=== PATIENT | female | born 1985 ===

== ENCOUNTER 2016-06-18 07:59 | Emergency (ER) | payer OTHER ==
[~2016-06-18] VITALS: Ht 160 cm; Wt 54.0 kg
[2016-06-18 08:02] VITALS: Ht 160 cm; Wt 54.0 kg
[2016-06-18] MEDS ORDERED: LEVALBUTEROL (NEB) 1.25 MG/0.5 ML AMP INH STA (08:14)
[2016-06-18] MEDS ORDERED: DEXAMETHASONE 10 MG/ML 1 ML INJ IM STA (08:14)
[2016-06-18] MEDS ORDERED: LORAZEPAM 2 MG INJ IM ONE ×2 (09:00)
--- NOTE | 2016-06-18 09:05 | RADRPT ---
PROCEDURE: XR Chest. CLINICAL INDICATION: chest pain, asthma TECHNIQUE: Single frontal view of the chest was obtained COMPARISON: None FINDINGS: The heart and mediastinum are within normal limits. The lungs are clear. There is no pleural effusion or pneumothorax. RPTAT: AA IMPRESSION: No acute disease. .Corby Dixon MD, MD Date Time Electronically viewed and signed by .Corby Dixon MD, on 06/18/2016 09:05 .S/
--- NOTE | 2016-06-18 09:39 | ERD ---
ER Documentation Chief Complaint Date/Time DATE: 06/18/16 TIME: 09:31 Chief Complaint SOB,ASTHMA ATTACK HPI This is a 31-year-old female presenting to the emergency department for shortness of breath and difficulty breathing for the past 40min. Patient states she has a history of asthma and used her albuterol inhaler 8 times before presenting to the ER. No cough or wheezing. Denies fevers. Patient states she has a history of anxiety and is currently not on medications for this. States she smoked cigarettes and drank tequila before the shortness of breath and difficulty breathing started. No difficulty swallowing or sore throat. No drooling. ROS All systems reviewed and are negative except as per history of present illness. Medications Home Meds Active Scripts Prednisone* (Prednisone*) 20 Mg Tab, 40 MG PO DAILY for 4 Days, TAB Prov:RODRIGUEZ SOUSA NP 06/18/16 Allergies Allergies: Coded Allergies: No Known Allergy (Unverified , 06/18/16) PMhx/Soc Medical and Surgical Hx: pt denies Surgical Hx History of Surgery: No Anesthesia Reaction: No Hx Neurological Disorder: No Hx Respiratory Disorders: Yes (Asthma) Hx Cardiac Disorders: No Hx Psychiatric Problems: No Hx Miscellaneous Medical Probl: No Hx Alcohol Use: Yes Hx Substance Use: No Hx Tobacco Use: Yes Smoking Status: Never smoker Physical Exam Vitals Vital Signs Date Time Temp Pulse Resp B/P Pulse Ox O2 Delivery O2 Flow Rate FiO2 06/18/16 10:43 98.3 99 18 128/88 100 Room Air 06/18/16 08:21 135 20 100 Nasal Cannula 2.0 06/18/16 08:02 98.3 118 18 137/95 100 Physical Exam Const: Sitting up in bed, gasping Head: Atraumatic Eyes: Normal Conjunctiva ENT: Normal External Ears, Nose and Mouth. Neck: Full range of motion..~ No meningismus. Resp: Clear to auscultation bilaterally. Tripod position for breathing. No wheezing, rhonchi or crackles. Cardio: Regular rate and rhythm, no murmurs Abd: Soft, non tender, non distended. Normal bowel sounds Skin: No petechiae or rashes Back: No midline or flank tenderness Ext: No cyanosis, or edema Neur: Awake and alert Psych: Normal Mood and Affect Results 24 hrs Laboratory Tests Test 06/18/16 09:58 Bedside Urine Blood Negative Bedside Urine Glucose (UA) Negative Bedside Urine Ketones (LAB) Negative Bedside Urine Leukocyte Esterase (L Negative Bedside Urine Nitrite (LAB) Negative Bedside Urine Protein (LAB) Negative Bedside Urine pH (LAB) 6.5 Current Medications Medications (Trade) Dose Ordered Sig/Alex Route PRN Reason Start Time Stop Time Status Last Admin Dose Admin Dexamethasone (Decadron) 10 mg ONCE STAT IM 06/18/16 08:14 06/18/16 08:16 DC 06/18/16 08:20 Levalbuterol (Xopenex Neb) 1.25 mg ONCE STAT INH 06/18/16 08:14 06/18/16 08:16 DC 06/18/16 08:20 Lorazepam (Ativan) 0.5 mg ONCE ONCE IM 06/18/16 09:00 06/18/16 09:00 DC Lorazepam (Ativan) 1 mg ONCE ONCE IM 06/18/16 09:00 06/18/16 09:01 DC 06/18/16 08:56 Procedures/MDM ED COURSE: The patient was stable throughout ED course. I kept the patient and/or family informed of laboratory and diagnostic imaging results throughout the ED course. Patient given Xopenex breathing treatment with Decadron. Patient also given 1 mg Ativan. Imaging Chest x-ray Patient: PATRICIO RAHMAN : 1985 Age: 31 Sex: F MR #: [id number] DOS: 06/18/1614 Ordering MD: RODRIGUEZ SOUSA NP Location: [facility] Room/Bed: PROCEDURE: XR Chest. CLINICAL INDICATION: chest pain, asthma TECHNIQUE: Single frontal view of the chest was obtained COMPARISON: None FINDINGS: The heart and mediastinum are within normal limits. The lungs are clear. There is no pleural effusion or pneumothorax. RPTAT: AA IMPRESSION: No acute disease. MDM: This is a 31-year-old female presents emergency department for shortness of breath for the past 40 minutes. Patient states she has history of asthma and used her albuterol inhaler 8 times when she started developing shortness of breath and difficulty breathing. Patient states she then started feeling worse and came to the ER for evaluation. Patient was started on oxygen via nasal cannula. Dr. Jain notified of patient and patient's condition as patient is sitting gasping for air in tripod position on the gurney. Xopenex breathing treatment and Decadron improved patient's breathing. Dr. Jain at bedside and we agree that patient would benefit from Ativan. Patient given 1 mg Ativan which improved her symptoms dramatically. Patient now breathing without difficulty and laying down in bed. Vital signs remained stable. Oxygen removed and oxygen saturation remains 100% on room air. Patient states she is feeling much better. Low suspicion for pneumonia, pneumothorax, pulmonary embolism or epiglottitis. Patient likely has shortness of breath secondary to asthma exacerbation. Patient is appropriate for outpatient management will be discharged with prescription for prednisone. Instructed patient to follow-up with primary care provider in the next 2-3 days for reassessment. Return to ED for any high fever , chest pain, difficulty breathing, shortness breath, wheezing, vomiting, diarrhea, abdominal pain or any new or worsening symptoms. Patient verbalizes understanding. All questions answered at discharge. Departure Diagnosis: Primary Impression: Asthma exacerbation Condition: Stable RODRIGUEZ SOUSA NP Jun 18, 2016 09:39
[2016-06-18 09:58] LABS: URINE BLOOD (Dip) POC Negative (NEGATIVE)
[2016-06-18] MEDS ORDERED: PRED20TA PO (10:30)
[2016-06-18 10:43] VITALS: BP 128/88; PULSE 99; RESP 18; TEMP 98.3
[2016-06-19] MEDS ORDERED: CETI-240 PO (16:34)
[2016-06-19] MEDS ORDERED: BEN25 PO (16:35)
[2016-06-19] MEDS ORDERED: CLOT30CR24 TOP (17:28)
== END 2016-06-18 10:44 | disposition home or self-care (01) ==
LOC: FTE 07:59
DX: J45.901 Unspecified asthma with (acute) exacerbation (principal)
CPT/HCPCS: 71010; 81003; 94664; 96372; J1100; J2060; Z7502; Z7610

== ENCOUNTER 2016-06-19 14:32 | Emergency (ER) | payer OTHER ==
[~2016-06-19] VITALS: Wt 53.5 kg
[~2016-06-19 14:32] MED LIST: PRED20TA PO
[2016-06-19] MEDS ORDERED: LORAZEPAM 2 MG INJ IV STA (15:04)
[2016-06-19] MEDS ORDERED: SOD CHLORIDE 0.9% 1,000 ML IV STA (15:04)
[2016-06-19 15:28] LABS: BASOPHIL # 0.1 10^3/ul (0.0-0.1); BASOPHILS % 0.6 % (0.0-2.0); EOSINOPHILS % 0.2 % (0.0-7.0); HEMATOCRIT 45.2 % (37.0-47.0); HEMOGLOBIN 15.4 g/dl (12.0-16.0); LYMPHOCYTES # 3.8 10^3/ul (0.8-2.9); LYMPHOCYTES % 44.2 % (15.0-51.0); MEAN CORPUSCULAR HEMOGLOBIN 32.3 pg (29.0-33.0); MEAN CORPUSCULAR VOLUME 94.9 fl (82.0-101.0); MEAN PLATELET VOLUME 8.9 fl (7.4-10.4); MONOCYTE # 1.1 10^3/ul (0.3-0.9); MONOCYTES % 12.4 % (0.0-11.0); NEUTROPHIL # 3.7 10^3/ul (1.6-7.5); NEUTROPHILS % 42.6 % (39.0-77.0); PLATELET COUNT 258 10^3/UL (140-440); RED BLOOD COUNT 4.76 10^6/ul (4.20-5.40); RED CELL DISTRIBUTION WIDTH 13.6 % (11.5-14.5); UNCORRECTED WBC 8.6 10^3/ul (4.8-10.8); WHITE BLOOD COUNT 8.6 10^3/ul (4.8-10.8)
--- NOTE | 2016-06-19 15:28 | RADRPT ---
PROCEDURE: Chest x-ray CLINICAL INDICATION: Shortness of breath. TECHNIQUE: One-view frontal. COMPARISON: 06/18/2016 FINDINGS: The cardiac silhouette is normal. No infiltrates are noted. No hilar abnormalities are identified. No pneumothorax or pleural effusions are visualized. IMPRESSION: 1. No active cardiopulmonary changes. RPTAT: HH .Fransisco Garg MD, MD Date Time Electronically viewed and signed by .Fransisco Garg MD, on 06/19/2016 15:27 .G/
[2016-06-19 15:31] LABS: ADD UMIC YES; URINE BILIRUBIN (Dip) NEGATIVE (NEGATIVE); URINE BLOOD (Dip) TRACE (NEGATIVE); URINE COLOR LT. YELLOW (YELLOW); URINE GLUCOSE (Dip) NEGATIVE (NEGATIVE); URINE KETONES (Dip) NEGATIVE (NEGATIVE); URINE LEUKOCYTE ESTERASE (Dip) TRACE (NEGATIVE); URINE NITRITE (Dip) NEGATIVE (NEGATIVE); URINE TOTAL PROTEIN (Dip) NEGATIVE (NEGATIVE); URINE UROBILINOGEN (Dip) 0.2 E.U./dL (0.1-1.0)
[2016-06-19 15:36] LABS: CONDITION 1; LH ANALYZER COMMENTS 1; SUSPECT 1
[2016-06-19 15:44] LABS: SQUAMOUS EPITHELIAL CELL,UR FEW; URINE RBCS 0-2 /HPF (0)
[2016-06-19 15:53] LABS: CANNABINOIDS Negative (NEGATIVE)
[2016-06-19 15:59] LABS: BARBITURATES Negative (NEGATIVE); BENZODIAZEPINES Negative (NEGATIVE); COCAINE Negative (NEGATIVE); OPIATES Negative (NEGATIVE)
[2016-06-19 16:29] LABS: ALBUMIN 4.4 g/dl (3.3-4.9); CHLORIDE 104 mmol/L (97-110); SODIUM 143 mmol/L (135-144)
[2016-06-19 16:30] LABS: POTASSIUM 3.6 mmol/L (3.5-5.1)
[2016-06-19 16:32] LABS: ALANINE AMINOTRANSFERASE 17 IU/L (13-69); ALBUMIN/GLOBULIN RATIO 1.33; ALKALINE PHOSPHATASE 102 IU/L (42-121); ANION GAP 21 (8-16); ASPARTATE AMINO TRANSFERASE 26 IU/L (15-46); BILIRUBIN,INDIRECT 0.7 mg/dl (0-1.1); BILIRUBIN,TOTAL 0.7 mg/dl (0.2-1.3); BLOOD UREA NITROGEN 15 mg/dl (7-20); CALCIUM 9.6 mg/dl (8.4-10.2); CARBON DIOXIDE 22 mmol/L (21-31); GLUCOSE 81 mg/dl (70-220); TOTAL PROTEIN 7.7 g/dl (6.1-8.1)
[2016-06-19] MEDS ORDERED: CETI-240 PO (16:34)
[2016-06-19 16:35] LABS: ACETAMINOPHEN < 10.0 ug/ml (10.0-30.0); ETHANOL < 10.0 mg/dl; SALICYLATE < 1.0 mg/dl (5.0-30.0)
[2016-06-19] MEDS ORDERED: BEN25 PO (16:35)
[2016-06-19] MEDS ORDERED: CLOT30CR24 TOP (17:28)
[2016-06-19] MEDS ORDERED: BETAMETHASONE/CLOTRIMAZOLE 15 GM CR TOP ONE (17:30)
[2016-06-19 17:37] VITALS: BP 128/74; PULSE 95; RESP 19; TEMP 98.2
--- NOTE | 2016-06-19 18:01 | ERD ---
ER Documentation Chief Complaint Date/Time DATE: 06/19/16 TIME: 17:59 Chief Complaint SOB, TACHYCARDIC, STATES HAD GHB AND ETOH INTAKE HPI Patient is a 31-year-old female with no medical problems who presents "I feel like I will faint". She said that she had an asthma attack yesterday and she feels like her throat is closing. 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 She does not currently have a primary doctor. Upon review of old medical records she had one previous visit yesterday. ROS All systems reviewed and are negative except as per history of present illness. Medications Home Meds Active Scripts Clotrimazole* (Clotrimazole* AF) 1% - 30 Gm Cream.gm., 1 APPLIC TOP BID for 7 Days, TUB Prov:JOVITA HOWARD MD 06/19/16 Prednisone* (Prednisone*) 20 Mg Tab, 40 MG PO DAILY for 4 Days, TAB Prov:RODRIGUEZ SOUSA NP 06/18/16 Reported Medications Diphenhydramine Hcl* (Benadryl*) 25 Mg Cap, 25 MG PO Q6H Y for ITCHING, CAP 06/19/16 Cetirizine Hcl* (Cetirizine Hcl*) 10 Mg Tablet, 10 MG PO DAILY, #30 TAB 06/19/16 Allergies Allergies: Coded Allergies: No Known Allergy (Unverified , 06/19/16) PMhx/Soc Medical and Surgical Hx: pt denies Surgical Hx History of Surgery: No Anesthesia Reaction: No Hx Neurological Disorder: No Hx Respiratory Disorders: Yes (Asthma) Hx Cardiac Disorders: No Hx Psychiatric Problems: No Hx Miscellaneous Medical Probl: No Hx Alcohol Use: Yes (socially) Hx Substance Use: Yes Hx Tobacco Use: Yes Smoking Status: Current every day smoker FmHx Family History: No diabetes Physical Exam Vitals Vital Signs Date Time Temp Pulse Resp B/P Pulse Ox O2 Delivery O2 Flow Rate FiO2 06/19/16 17:37 98.2 95 19 128/74 100 Room Air 06/19/16 17:00 104 19 133/77 100 Room Air 06/19/16 14:40 99.1 139 24 162/90 99 Physical Exam Const: Anxious Head: Atraumatic Eyes: Normal Conjunctiva ENT: Normal External Ears, Nose and Mouth. No signs of oropharyngeal swelling or stridor over the Neck: Full range of motion..~ No meningismus. Resp: Clear to auscultation bilaterally Cardio: Tachycardic rate without murmur Abd: Soft, non tender, non distended. Normal bowel sounds Skin: No petechiae or rashes Back: No midline or flank tenderness Ext: No cyanosis, or edema Neur: Awake and alert Psych: Anxious and tearful Result Diagram: 06/19/16 1510 06/19/16 1559 Results 24 hrs Laboratory Tests Test 06/19/16 15:10 06/19/16 15:59 Basophils # 0.110^3/ul Basophils % 0.6% Eosinophils # 0.010^3/ul Eosinophils % 0.2% Hematocrit 45.2% Hemoglobin 15.4g/dl Lymphocytes # 3.810^3/ul Lymphocytes % 44.2% Mean Corpuscular Hemoglobin 32.3pg Mean Corpuscular Hemoglobin Concent 34.0g/dl Mean Corpuscular Volume 94.9fl Mean Platelet Volume 8.9fl Monocytes # 1.110^3/ul Monocytes % 12.4% Neutrophils # 3.710^3/ul Neutrophils % 42.6% Nucleated Red Blood Cells # 0.010^3/ul Nucleated Red Blood Cells % 0.0/100WBC Platelet Count 01246^3/UL Red Blood Count 4.7610^6/ul Red Cell Distribution Width 13.6% Urine Amphetamines Screen Negative Urine Barbiturates Negative Urine Benzodiazepines Screen Negative Urine Bilirubin NEGATIVE Urine Cannabinoids Negative Urine Clarity CLEAR Urine Cocaine Screen Negative Urine Color LT. YELLOW Urine Glucose NEGATIVE% Urine Hemoglobin TRACE Urine Ketones NEGATIVE Urine Leukocyte Esterase TRACE Urine Microscopic RBC 0-2/HPF Urine Microscopic WBC 0-2/HPF Urine Nitrite NEGATIVE Urine Opiates Screen Negative Urine Specific [place] 1.010 Urine Squamous Epithelial Cells FEW Urine Total Protein NEGATIVE Urine Urobilinogen 0.2 E.U./dL Urine pH 8.0 White Blood Count 8.610^3/ul Acetaminophen Level < 10.0ug/ml Alanine Aminotransferase (ALT/SGPT) 17IU/L Albumin 4.4g/dl Albumin/Globulin Ratio 1.33 Alkaline Phosphatase 102IU/L Anion Gap 21 Aspartate Amino Transf (AST/SGOT) 26IU/L Blood Urea Nitrogen 15mg/dl Calcium Level 9.6mg/dl Carbon Dioxide Level 22mmol/L Chloride Level 104mmol/L Creatinine 0.70mg/dl Direct Bilirubin 0.00mg/dl Ethyl Alcohol Level < 10.0mg/dl Globulin 3.30g/dl Glucose Level 81mg/dl Indirect Bilirubin 0.7mg/dl Potassium Level 3.6mmol/L Salicylates Level < 1.0mg/dl Sodium Level 143mmol/L Total Bilirubin 0.7mg/dl Total Protein 7.7g/dl Current Medications Medications (Trade) Dose Ordered Sig/Alex Route PRN Reason Start Time Stop Time Status Last Admin Dose Admin Sodium Chloride (NS) 1,000 ml @ 1,000 mls/hr Q1H STAT IV 06/19/16 15:04 06/19/16 16:03 DC 06/19/16 15:21 Lorazepam (Ativan) 1 mg ONCE STAT IV 06/19/16 15:04 06/19/16 15:06 DC 06/19/16 15:20 Betamethasone/ Clotrimazole (Lotrisone Cr) 1 applic ONCE ONCE TOP 06/19/16 17:30 06/19/16 17:31 DC Procedures/MDM Chest x-ray negative per radiology. Smoking Cessation Therapy: Pt. was lectured for greater than 3 minutes on the health risks of continued smoking and the benefits of cessation. Patient is a 31-year-old female who presents with the feeling of shortness of breath. I believe this is most likely related to her drug use. Chest x-ray does not show any signs of pneumonia or pneumothorax. I doubt acute coronary syndrome, pneumonia, pneumothorax, pulmonary embolism, or aortic dissection. At this point I believe outpatient management is appropriate. However I do believe that she would benefit from eloped with an language specialist I did give her a copy of the treatment centers in the area. The patient was given 1 L of normal saline for fluid resuscitation as well as Ativan and she feels much better and is much more calm than when she arrived. Departure Diagnosis: Primary Impression: Drug use Additional Impressions: Shortness of breath Tachycardia Condition: Fair Patient Instructions: Sinus Tachycardia, Drug Abuse Referrals: COMMUNITY CLINICS YOU HAVE RECEIVED A MEDICAL SCREENING EXAM AND THE RESULTS INDICATE THAT YOU DO NOT HAVE A CONDITION THAT REQUIRES URGENT TREATMENT IN THE EMERGENCY DEPARTMENT. FURTHER EVALUATION AND TREATMENT OF YOUR CONDITION CAN WAIT UNTIL YOU ARE SEEN IN YOUR DOCTORS OFFICE WITHIN THE NEXT 1-2 DAYS. IT IS YOUR RESPONSIBILITY TO MAKE AN APPOINTMENT FOR FOLOW-UP CARE. IF YOU HAVE A PRIMARY DOCTOR --you should call your primary doctor and schedule an appointment IF YOU DO NOT HAVE A PRIMARY DOCTOR YOU CAN CALL OUR PHYSICIAN REFERRAL HOTLINE AT IF YOU CAN NOT AFFORD TO SEE A PHYSICIAN YOU CAN CHOSE FROM THE FOLLOWING [facility] CLINICS [facility] [address] [facility] [address] [facility] [facility] [address] [facility] [address] [facility] [facility] [address] [facility] [facility]. [address] Additional Instructions: Call your primary care doctor TOMORROW for an appointment during the next 1-2 days.See the doctor sooner or return here if your condition worsens before your appointment time. JOVITA HOWARD MD Jun 19, 2016 18:01
== END 2016-06-19 17:18 | disposition home or self-care (01) ==
LOC: E/R 14:32
DX: F15.929 Other stimulant use, unspecified with intoxication, unspecified (principal); R00.0 Tachycardia, unspecified; J45.909 Unspecified asthma, uncomplicated; F17.210 Nicotine dependence, cigarettes, uncomplicated
CPT/HCPCS: 36415; 71010; 80053; 80306; 80307; 81001; 85025; 96374; J2060; J7030; Z7502; Z7610; 81003

== ENCOUNTER 2016-07-10 15:34 | Emergency (ER) | payer SELFPAY ==
[~2016-07-10] VITALS: Wt 50.0 kg
[~2016-07-10 15:34] MED LIST changes: +BEN25 PO; +CETI-240 PO; +CLOT30CR24 TOP
== END 2016-07-10 17:25 | disposition left against medical advice (07) ==
LOC: FTE 15:34
DX: Z53.21 Procedure and treatment not carried out due to patient leaving prior to being seen by health care provider (principal)

== ENCOUNTER → 2016-12-10 | Emergency (ER) | payer OTHER ==
[~2016-12-10] VITALS: Ht 160 cm; Wt 56.0 kg
[~2016-12-10] MED LIST changes: +LORAZEPAM 1 MG TAB PO ONE
[2016-12-10 01:32] VITALS: Ht 160 cm; Wt 56.0 kg
--- NOTE | 2016-12-10 03:54 | ERD ---
ER Documentation Chief Complaint Date/Time DATE: 12/10/16 TIME: 03:53 Chief Complaint shortness of breath x 30 minutes. lungs clear, states feels throat closing HPI This is a 31-year-old female who presents to the emergency department today complaining of shortness of breath 30 minutes prior to arrival and feeling like her throat was closing up and heart palpitations. States this has happened to her in the past. States she uses drugs and her last use was 1-2 weeks ago. Denies any fevers or chills. ROS All systems reviewed and are negative except as per history of present illness. Medications Home Meds Active Scripts Clotrimazole* (Clotrimazole* AF) 1% - 30 Gm Cream.gm., 1 APPLIC TOP BID for 7 Days, TUB Prov:JOVITA HOWARD MD 06/19/16 Prednisone* (Prednisone*) 20 Mg Tab, 40 MG PO DAILY for 4 Days, TAB Prov:RODRIGUEZ SOUSA NP 06/18/16 Reported Medications Diphenhydramine Hcl* (Benadryl*) 25 Mg Cap, 25 MG PO Q6H Y for ITCHING, CAP 06/19/16 Cetirizine Hcl* (Cetirizine Hcl*) 10 Mg Tablet, 10 MG PO DAILY, #30 TAB 06/19/16 Allergies Allergies: Coded Allergies: No Known Allergy (Unverified , 12/10/16) PMhx/Soc History of Surgery: Yes (TONSILECTOMY) Anesthesia Reaction: No Hx Neurological Disorder: No Hx Respiratory Disorders: Yes (Asthma) Hx Cardiac Disorders: No Hx Psychiatric Problems: Yes (ANXIETY) Hx Miscellaneous Medical Probl: No Hx Alcohol Use: Yes (socially) Hx Substance Use: Yes Hx Tobacco Use: Yes Smoking Status: Current some day smoker Physical Exam Vitals Vital Signs Date Time Temp Pulse Resp B/P Pulse Ox O2 Delivery O2 Flow Rate FiO2 12/10/16 01:32 98.6 114 20 158/90 100 Physical Exam Const: No acute distress Head: Atraumatic Eyes: Normal Conjunctiva ENT: Normal External Ears, Nose and Mouth. Neck: Full range of motion..~ No meningismus. Resp: Clear to auscultation bilaterally. No absent breath sounds. No wheezing. Cardio: Regular rate and rhythm, no murmurs Skin: No petechiae or rashes Neur: Awake and alert Psych: Normal Mood and Affect Results 24 hrs Current Medications Medications (Trade) Dose Ordered Sig/Alex Route PRN Reason Start Time Stop Time Status Last Admin Dose Admin Lorazepam (Ativan) 1 mg ONCE ONCE PO 12/10/16 04:00 12/10/16 04:01 DC 12/10/16 04:02 Procedures/MDM Is a 31-year-old female who presents to the emergency department today complaining of shortness of breath 30 minutes prior to arrival, feeling like her throat was closing up and heart palpitations. Patient reported feeling symptomatically better upon arriving to the emergency department. Upon review of patient's medical records she had the same exact symptoms approximately 6 months ago. She is afebrile and otherwise well-appearing. Her oxygen saturations 100%. I do not feel that she requires a chest x-ray at this time. Low suspicion for pneumonia, PE, abscess, pleural effusion, pneumothorax. I did obtain an EKG as patient was tachycardic at intake EKG read and interpreted by Dr. Montes rate [address] elevation. No QT prolongation. Low suspicion for acute UT, PE, pericarditis Patient's signs and symptoms at this time appear most consistent with shortness of breath likely secondary to anxiety related symptoms. I have explained this to the patient. Patient given 1 g Ativan here in the emergency department. Given patient's history of drug abuse I do not feel it is beneficial to discharge her with any benzodiazepines at this time. Patient was instructed and counseled to stop abusing drugs. At this time the patient is stable for discharge and outpatient management. Patient should follow up with their PCP in the next 1-2 days. They may return to the emergency department sooner for any persistent or worsening of symptoms. Patient understood and agreed with the plan. Departure Diagnosis: Primary Impression: Shortness of breath Condition: BELKIS Santiago PA-C Dec 10, 2016 03:54
== END | disposition home or self-care (01) ==
LOC: FTE 01:27
DX: R06.02 Shortness of breath (principal); J45.909 Unspecified asthma, uncomplicated; F17.210 Nicotine dependence, cigarettes, uncomplicated
CPT/HCPCS: Z7502; Z7610; 93005

== ENCOUNTER 2017-10-27 23:41 | Emergency (ER) | END 2017-10-28 00:57 | disposition home or self-care (01) ==